=== PATIENT | female | born 2000 | race Caucasian/White ===

== ENCOUNTER 2025-02-19 16:57 | Emergency (ER) | payer BC, SELFPAY ==
--- OUTSIDE RECORDS SUMMARY | 2025-02-19 16:59 | XMS_ITS | Clinical Summary ---
Author Organization [facility] Address [address] [place] [id number] Care Team Providers Care Revit Drafter Name Role Phone Coreen Walter M.D. Primary Care Provider [phone] Source Comments Patient records contain information from all sites at [facility]. For routine questions regarding patient records, call [phone] during business hours, M-F 8:00 AM - 5:00 PM Central Time. Record requests for emergency care only can be directed to [phone] at any time.[facility] Allergies No known active allergies Medications ferrous sulfate (SLOW IRON) 140 mg (45 mg iron) ER tablet Take 1 tablet (45 mg of iron total) by mouth 2 (two) times a day. 60 tablet 3 9 Active progesterone (Prometrium) 200 mg capsule Take 200 mg by mouth as needed (Every third night after ovulation). 4 Active pcimm-7-xyx-epa-d pa-fish oil 1,050-1,200 mg capsule Take 1 capsule by mouth daily. 4 Active mv-min/iron/folic /calcium/vitK (WOMEN'S MULTIVITAMIN ORAL) Take 1 tablet by mouth daily. 4 Active cholecalciferol, vitamin D3, (VITAMIN D3 ORAL) Take 1 tablet by mouth daily. 4 Active magnesium oxide 300 mg magnesium tablet Take 1 tablet by mouth daily. 4 Active Active Problems Problem Noted Date Diagnosed Date Fasciculation Benign 03/10/2019 Varicella Resolved Problems Problem Noted Date Diagnosed Date Resolved Date Disturbance Sleep 03/10/2019 02/09/2020 Encounters Date Type Department Care Team Description 01/14/2025 Patient Self-Triage CONNECTED CARE Symptom Call Circuit Worker, Provider from Last 3 Months Immunizations Immunization Administration Dates Next Due DTaP (Infanrix, [employer]) 02/03/2007,04/2003,04/27/2002,02/13/2002, HepA Pediatric/Adolescent 11/21/2005,05/04/2005 HepB, Unspecified 04/27/2002,2001 Hib (HbOC) (discontinued) 10/20/2002,04/27/2002, 02/13/2002,2001 IPV 02/03/2007,07/14/2002,02/13/2002 ,2001 MCV4 (Menactra)(Discontinued) 02/09/2020 MMR 02/03/2007,10/20/2002 Tdap 02/09/2020 Family History Medical History Relation Name Comments Autism Brother Depression Brother ALS Father Rinku 2012 Asthma Father Rinku Hypertension Father Rinku Bile duct carcinoma Mother Marilee 201 8 Breast cancer Mother Marilee Relation Name Status Comments Brother Father Rinku Mother Marilee Sister Carolina Alive Social History Tobacco Use Types Packs/Day Years Used Date Smoking Tobacco: Never Smokeless Tobacco: Never Tobacco Cessation:Counseling Given: Not Answered Alcohol Use Standard Drinks/Week Comments No 0 (1 standard drink = 0.6 oz pur e alcohol) [facility] Utilities Answer Date Recorded In the past 12 months has [facility] [employer], gas, oil, or water [employer] threatened to shut off services in your home? No 06/07/2024 Humiliation, Afraid, Rape, and Kick questionnair e Answer Date Recorded Within the last year, have y ou been afraid of your partner or ex-partner? No 09/06/2021 Within the last year, have y ou been humiliated or emotionally abused in other ways by your partner or ex-partner? No Within the last year, have y ou been kicked, hit, slapped, or otherwise physically hurt by your partner or ex-partner? No 09/06/2021 Within the last year, have y ou been raped or forced to have any kind of sexual activity by your partner or ex-partner? No 09/06/2021 Hunger Vital Sign Answer Date Recorded Within the past 12 months, y ou worried that your food would run out before you got the money to buy more. Never true 06/07/20 24 Within the past 12 months, t he food you bought just didn't last and you didn't have money to get more. Never true 06/07/2024 PRAPARE - Transportation Answer Date Re corded In the past 12 months, has l ack of transportation kept you from medical appointments or from getting medications? No 05/29 In the past 12 months, has l ack of transportation kept you from meetings, work, or from getting things needed for daily living? No 06/07/2024 Housing Stability Answer Date Recorded What is your living situation today? I have a [facility] place to live 06/07/2024 Education Answer Date Recorded What is the highest level of school you have completed or the highest degree you have received? Some college, no degree 09/06/2021 Comments Unknown Sex and Gender Information Value Date Recorded Sex Assigned at Female 06/07/2024 1:28 PM ENGINEER THIRD ASSISTANT Legal Sex Female 4:51 PM CDT Gender Identity Female 11/07/2020 3:50 PM CDT Sexual Orientation Straight 06/07/2024 1: 28 PM ENGINEER THIRD ASSISTANT Last Filed Vital Signs Vital Sign Reading Time Taken Comments Blood Pressure 115/77 06/09/2024 3:56 PM ENGINEER THIRD ASSISTANT Pulse 81 06/09/2024 3:56 PM ENGINEER THIRD ASSISTANT Temperature 36.4 C (97.5 F) 06/09/2024 3:56 PM ENGINEER THIRD ASSISTANT Respiratory Rate 20 11/27/2018 5:45 PM CDT Oxygen Saturation 99% 02/09/2020 10:51 AM CDT Inhaled Oxygen Concentration - - Weight 73.1 kg (161 lb 2.5 oz) 06/09/2024 3:56 PM ENGINEER THIRD ASSISTANT Height 157 cm (5' 1.81) 06/09/2024 3:56 PM ENGINEER THIRD ASSISTANT Body Mass Index 29.66 06/09/2024 3:56 PM ENGINEER THIRD ASSISTANT Plan of Treatment Health Maintenance Due Date Last Done Comments Cervical/Vaginal Cancer Screening 2001 Chlamydia and Gonorrhea Screening 2001 Hepatitis C Screening 2001 Hepatitis B Vaccines (3 of 3 - 3-dose series) 06/22/2002 04/27/2002, 2001 HPV Vaccines (1 - 3-dose series) 2016 COVID-19 Vaccine (2023- season) 2024 Depression Screening (Annual PHQ-2) 07/29/2024 06/07/2024 Influenza Vaccine (#1) 2025 DTaP,Tdap,and Td Vaccines (7 - Td or Tdap) 02/08/2030 02/09/2020, 02/03/2007, 05/07/2003, Additional history exists IPV Vaccines Completed 02/03/2007, 06/28, 02/13/2002, Additional history exists HIV Screening Completed 01/20/2019 Pneumococcal vaccine (0-49 years) Aged Out No longer eligible based on patient's age to complete this topic Procedures Procedure Name Priority Date/Time Associated Diagnosis Comments HIV-1/-2 AG AND AB SCREEN, PLASMA Routine 01/20/2019 5:13 PM CDT Varicella from Last 3 Months or Most Recently Relevant to Health Maintenance Results * HIV-1/-2 Ag and Ab Screen, Plasma (01/20/2019 5:13 PM CDT) Pathologist [facility] HIV-1/-2 Ag and Ab Screen, P Negative Negative 01/20/2019 10:27 PM CDT Comment: Negative result does not rule out HIV infection. If exposure to HIV infection occurred <14 days ago, contact the laboratory to request addition of HIV-1 RNA detection / quantification test (HIVQN). Blood (Blood, Venous) 01/20/2019 5:13 PM CDT 01/20/2019 8:10 PM CDT Arian Barrios M.D., M.P.H. LAB MICROBIOLOG Y - BLOOD ORDERABLES Final Result [facility] [address] [place] [id number] from Last 3 Months or Most Recently Relevant to Health Maintenance Insurance [facility] Care Teams Revit Drafter Relationship Specialty Start Date End Date Coreen Walter M.D. [address] [place] [phone] PCP - General Family Medicine 12/01/18
--- OUTSIDE RECORDS SUMMARY | 2025-02-19 16:59 | XMS_ITS | Encounter Summary ---
Author Organization [facility] Address [address] [place] [address] Care Team Providers Care Textile Technical Officer Name Role Phone Coreen Walter M.D. Primary Care Provider [phone] Encounter Details Date Type Department Care Team (Late st Contact Info) Description 01/14/2025 Patient Self-Triage CONNECTED CARE Symptom Barrel Cooper, Provider Social History Tobacco Use Types Packs/Day Years Used Date Smoking Tobacco: Never Smokeless Tobacco: Never Alcohol Use Standard Drinks/Week Comments No 0 (1 standard drink = 0.6 oz pur e alcohol) [facility] Utilities Answer Date Recorded In the past 12 months has e electric, gas, oil, or water [employer] threatened to shut off services in your [...] your living situation today? I have a [facility] place to live 06/07/2024 Education Answer Date Recorded What is the highest level of school you have completed or the highest degree you have received? Some college, no degree 09/06/2021 Comments Unknown Sex and Gender Information Value Date Recorded Sex Assigned at Female 06/07/2024 1:28 PM WIND TECHNICIAN Legal Sex Female 4:51 PM CDT Gender Identity Female 11/07/2020 3:50 PM CDT Sexual Orientation Straight 06/07/2024 1: 28 PM WIND TECHNICIAN documented as of this encounter Plan of Treatment Not on file documented as of this encounter Visit Diagnoses Not on filedocumented in this encounter Care Teams Textile Technical Officer Relationship Specialty Start Date End Date Coreen Walter M.D. [address] [place] [phone] PCP - General Family Medicine 12/01/18 documented as of this encounter
[2025-02-19 17:14] VITALS: BP 128/72; PULSE 75; RESP 18; TEMP 36.8; O2SAT 100; BMI 31.9
--- NOTE | 2025-02-19 17:41 | ED_ITS ---
HPI - General Adult General Chief complaint: Skin/Abscess/Foreign Body Stated complaint: Something stuck in between big toe and next one Time Seen by Provider: 02/19/25 17:04 History of Present Illness HPI narrative: Patient is a 24-year-old woman who has stepped on something earlier today. Is a foreign body sensation between digits 1 and 2 on her right foot. She initially went to urgent care and after suitable anesthesia they did make a small incision but were unable to get a hold of the material. She he is still having the effects of the lidocaine with local numbness. No other concerns. The foreign body was not seen on x-ray. Related Data Home Medications ?Medication ?Instructions ?Recorded ?Confirmed progesterone micronized 200 mg 200 mg PO QHS 02/19/25 02/19/25 capsule Allergies Allergy/AdvReac Type Severity Reaction Status Date / Time No Known Drug Allergies Allergy Verified 02/19/25 14:44 Review of Systems Status of ROS: Reports: 10 or more systems reviewed and unremarkable except as noted in History and below PFSH PFS Social History Smoking Status: Never smoker Do you use any of these nicotine containing products: None Second hand tobacco smoke exposure: No How often do you have a drink containing alcohol: monthly or less How often do you have six or more drinks on one occasion: Never AUDIT-C Alcohol total score: 1 Non-prescribed substance use: denies use service: No Exam Narrative: Exam Narrative: EXAM GENERAL: Patient appears comfortable and well. EYES: No scleral icterus. LYMPH: No supraclavicular or cervical lymphadenopathy. SKIN: Visible skin seen during exam normal or with benign process only. Previous incision and dark discoloration of the deep wound is noted between digits 1 and 2 right foot. EXT: No dependent lower extremity pedal edema. ABD: Soft, non tender, non distended. PSYCH: Good eye contact, speech is not pressured. Const: Vital Signs, click to edit/add: Vital Signs - 24 hr 02/19/25 17:14 Temperature 98.3 F Pulse Rate [Pulse Oximeter] 75 Respiratory Rate 18 Blood Pressure [Ri ght Upper Arm] 128/72 Pulse Oximetry 100 Oxygen Delivery Me thod Room Air Course Course ED Course: Patient seen and examined. With the area still anesthetized I did make a slightly larger incision through which I inserted a Elva forceps with which I was able to grasp what appears to be a pencil lead. This is removed in the area was aggressively explored and irrigated. The wound was bandaged she was instructed on wound care will follow-up with her primary physician as needed. She is up-to-date on her tetanus shot. Vital Signs Vital signs: Initial Vital Signs Temperature 98.3 F 02/19/25 17:14 Temperature Source Temporal Artery Scan 02/19/25 17:14 Pulse Rate 75 02/19/25 17:14 Respiratory Rate 18 02/19/25 17:14 Blood Pressure 128/72 02/19/25 17:14 Blood Pressure Mean 90 02/19/25 17:14 Pulse Oximetry 100 02/19/25 17:14 Oxygen Delivery Method Room Air 02/19/25 17:14 Vital Signs Temperature 98.3 F 02/19/25 17:14 Pulse Rate 75 02/19/25 17:14 Respiratory Rate 18 02/19/25 17:14 Blood Pressure 128/72 02/19/25 17:14 Pulse Oximetry 100 02/19/25 17:14 Oxygen Delivery Method Room Air 02/19/25 17:14 Temperature 98.3 F 02/19/25 17:14 Pulse Rate 75 02/19/25 17:14 Respiratory Rate 18 02/19/25 17:14 Blood Pressure 128/72 02/19/25 17:14 Pulse Oximetry 100 02/19/25 17:14 Oxygen Delivery Method Room Air 02/19/25 17:14 Discharge Plan Discharge Clinical Impression: Foreign body Patient Disposition: Home, Self-Care Condition: Stable Additional Instructions: Bacitracin twice daily Change bandage twice daily Keep wound clean Follow-up with your doctor as needed. Activity Level: No Restrictions Discharge Diet: Regular Prescriptions: No Action progesterone micronized 200 mg capsule 200 mg PO QHS Follow Up/Referrals: Coreen Walter MD [Primary Care Provider, Family Practice] Stand Alone Forms: [employer] Info Instructions
== END 2025-02-19 17:59 | disposition home or self-care (01) ==
LOC: ED 17:58
PROVIDERS: Emergency Provider Internal Medicine
DX: S90.851A Superficial foreign body, right foot, initial encounter (principal)
CPT/HCPCS: 10120; 99283